=== PATIENT | female | born 1955 | race Caucasian/White ===

== ENCOUNTER 2020-11-16 12:02 | Inpatient (IN) | payer OTHER ==
--- NOTE | 2020-11-16 13:27 | ER Document Report ---
ED Medical Screen (RME) - General Chief Complaint: Post Surgical Pain Stated Complaint: POST SURGICAL PAIN Time Seen by Provider: 11/16/20 13:16 Primary Care Provider: JUAN JOSE FIELDS PA-C [Primary Care Provider] - Follow up as needed TRAVEL OUTSIDE OF THE [place] IN LAST 30 DAYS: No - HPI Notes: Patient is a 65-year-old female who presents with a postop infection. Patient had right hip replacement done on 10/08/[address] Murdock. Patient states she noticed purulent drainage, redness, swelling and tenderness to the surgical incision on her right hip 5 days ago. She saw her primary care provider today concerning this and she was advised to call Dr. Murdock. Dr. Murdock advised patient to come to the emergency department for blood work and states he would come and evaluate the patient this afternoon once he was out of surgery. Patient reports fever. - Related Data Allergies/Adverse Reactions: acetaminophen [From Vicodin] Adverse Reaction (Verified 10/06/20 08:37) hydrocodone [From Vicodin] Adverse Reaction (Verified 10/06/20 08:37) oxycodone [From Percocet] Adverse Reaction (Verified 10/06/20 08:37) Past Medical History - Past Medical History Cardiac Medical History: Reports: Hx Hypertension Endocrine Medical History: Reports: Hx Diabetes Mellitus Type 2, Hx Hypothyroidism Psychiatric Medical History: Denies: Hx Depression Past Surgical History: Reports: Hx Orthopedic Surgery - right knee, unsure what was done, Hx Tubal Ligation Physical Exam - Vital signs Vitals: Temp Pulse Resp BP Pulse Ox 98.8 F 104 H 16 144/97 H 98 11/16/20 12:40 11/16/20 12:40 11/16/20 12:40 11/16/20 12:40 11/16/20 12:40 - Extremities Hip: Other - erythematous surgical incision with purulent drainage on the right hip Course - Re-evaluation Re-evalutation: I have greeted and performed a rapid initial assessment of this patient. A comprehensive ED assessment and evaluation of the patient, analysis of test results and completion of medical decision making process will be conducted by an additional ED providers. - Vital Signs Vital signs: Temp Pulse Resp BP Pulse Ox 98.8 F 104 H 16 144/97 H 98 11/16/20 12:40 11/16/20 12:40 11/16/20 12:40 11/16/20 12:40 11/16/20 12:40 Doctor's Discharge - Discharge Referrals: JUAN JOSE FIELDS PA-C [Primary Care Provider] - Follow up as needed
[2020-11-16 14:12] LABS: ABSOLUTE LYMPHOCYTES (AUTO) 2.2 10^3/uL (0.5-4.7); ABSOLUTE MONOCYTES (AUTO) 0.4 10^3/uL (0.1-1.4); ABSOLUTE NEUT (AUTO) 3.3 10^3/uL (1.7-8.2); BASOPHILS % (AUTO) 0.6 % (0-2); EOSINOPHILS % (AUTO) 0.2 % (0-6); HEMATOCRIT 36.7 % (36.0-47.0); HEMOGLOBIN 12.5 g/dL (12.0-15.5); LYMPHOCYTES % (AUTO) 37.4 % (13-45); MEAN CORPUSCULAR HGB CONC 34.1 g/dL (32.0-36.0); MEAN CORPUSCULAR VOLUME 85 fl (80-97); MONOCYTES % (AUTO) 6.8 % (3-13); PLATELET COUNT 255 10^3/uL (150-450); RED BLOOD COUNT 4.32 10^6/uL (3.72-5.28); RED CELL DISTRIBUTION WIDTH 14.7 % (11.5-14.0); TOTAL CELLS COUNTED % (AUTO) 100 %
[2020-11-16 14:36] LABS: ALBUMIN 3.9 g/dL (3.5-5.0); ALKALINE PHOSPHATASE 102 U/L (38-126); ANION GAP 6 (5-19); ASPARTATE AMINO TRANSFERASE 58 U/L (14-36); BILIRUBIN,DIRECT 0.3 mg/dL (0.0-0.4); BILIRUBIN,TOTAL 0.3 mg/dL (0.2-1.3); BLOOD UREA NITROGEN 21 mg/dL (7-20); C-REACTIVE PROTEIN 17.6 mg/L (<10.0); CARBON DIOXIDE 33 mmol/L (22-30); CHLORIDE 100 mmol/L (98-107); GLUCOSE 206 mg/dL (75-110); POTASSIUM 4.3 mmol/L (3.6-5.0); TOTAL PROTEIN 6.6 g/dL (6.3-8.2)
[2020-11-16 14:49] LABS: ERYTHROCYTE SEDIMENTATION RATE 20 mm/hr (0-30)
--- NOTE | 2020-11-16 15:24 | RADIOLOGY REPORT (SQ) ---
EXAM DESCRIPTION: HIP RIGHT AP/LATERAL IMAGES COMPLETED DATE/TIME: 11/16/2020 2:36 pm REASON FOR STUDY: right hip replacement with postop infection COMPARISON: None. NUMBER OF VIEWS: Three views. TECHNIQUE: An AP view of the pelvis and AP and lateral frogleg views of the right hip were obtained. LIMITATIONS: None. FINDINGS: MINERALIZATION: Normal. RIGHT HIP: The KERWIN hardware is intact. There is no periprosthetic fracture or dislocation. LEFT HIP: Osteoarthrosis of the femoroacetabular joint. PUBIS AND ISCHIUM: The ilioischial and iliopectineal lines are intact. There is no diastasis of the pubic symphysis. PELVIS: No fracture. SACRUM: Intact. LOWER LUMBAR SPINE: Degenerative spondylosis. SOFT TISSUES: No acute gross abnormality. OTHER: No other findings. IMPRESSION: Intact right-sided KERWIN hardware. TECHNICAL DOCUMENTATION: JOB ID: [id number] 2010 [employer]- All Rights Reserved Reading location - IP/workstation name: [email or web address]
[2020-11-16] MEDS ORDERED: METFORMIN HCL 500 MG TABLET PO ONE (16:39)
[2020-11-16] MEDS ORDERED: GLIPIZIDE 10 MG TABLET PO ONE (16:40)
--- NOTE | 2020-11-16 16:57 | ER Document Report ---
ED General - General Chief Complaint: Post Surgical Pain Stated Complaint: POST SURGICAL PAIN Time Seen by Provider: 11/16/20 13:16 Primary Care Provider: JUAN JOSE FIELDS PA-C [Primary Care Provider] - Follow up as needed Mode of Arrival: Ambulatory Information source: Patient TRAVEL OUTSIDE OF THE [place] IN LAST 30 DAYS: No - HPI Notes: Patient presents with right hip pain. She states it has been hurting now for several weeks. She states that she had a recent right hip replacement. And the pain is located near the incision site. She is also noted some drainage from the incision site. She states she does currently use a walker and occasionally she will get some sharp pain that is severe and that radiates down the right leg. It is usually with ambulation at her pain is better with rest. She denies any significant fevers but she has had some recent cough cold and congestion. She has had no known Covid virus exposures. - Related Data Allergies/Adverse Reactions: acetaminophen [From Vicodin] Adverse Reaction (Verified 11/16/20 15:34) hydrocodone [From Vicodin] Adverse Reaction (Verified 11/16/20 15:34) oxycodone [From Percocet] Adverse Reaction (Verified 11/16/20 15:34) Home Medications: eliquis. metformin. glipizide. levoxyl. lisinopril Past Medical History - General Information source: Patient - Social History Smoking Status: Former Smoker Chew tobacco use (# tins/day): No Frequency of alcohol use: None Drug Abuse: None Family History: Reviewed & Not Pertinent Patient has homicidal ideation: No - Past Medical History Cardiac Medical History: Reports: Hx Hypertension Endocrine Medical History: Reports: Hx Diabetes Mellitus Type 2, Hx Hypothyroidism Psychiatric Medical History: Denies: Hx Depression Past Surgical History: Reports: Hx Orthopedic Surgery - right knee, unsure what was done, Hx Tubal Ligation Review of Systems - Review of Systems Constitutional: Chills, Fever, Malaise Cardiovascular: denies: Chest pain, Palpitations Respiratory: Cough. denies: Short of breath -: Yes All other systems reviewed and negative Physical Exam - Vital signs Vitals: Temp Pulse Resp BP Pulse Ox 98.8 F 104 H 16 144/97 H 98 11/16/20 12:40 11/16/20 12:40 11/16/20 12:40 11/16/20 12:40 11/16/20 12:40 Interpretation: Tachycardic - General General appearance: Appears well, Alert - HEENT Head: Normocephalic, Atraumatic Eyes: Normal Pupils: PERRL - Respiratory Respiratory status: No respiratory distress Chest status: Nontender Breath sounds: Normal Chest palpation: Normal - Cardiovascular Rhythm: Tachycardia Heart sounds: Normal auscultation Murmur: No - Abdominal Inspection: Normal Distension: No distension Bowel sounds: Normal Tenderness: Nontender Organomegaly: No organomegaly - Back Back: Normal, Nontender - Extremities General upper extremity: Normal inspection, Nontender, Normal color, Normal ROM, Normal temperature General lower extremity: Normal temperature, Other - Right hip has a post surgical wound. This wound is dehisced. There is some clear drainage. No significant surrounding erythema or induration. It is tender mildly to palpation.. No: Angela's sign - Neurological Neuro grossly intact: Yes Cognition: Normal Orientation: AAOx4 [place] Coma Scale Eye Opening: Spontaneous [place] Coma Scale Verbal: Oriented [place] Coma Scale Motor: Obeys Commands Yuan Coma Scale Total: 15 Speech: Normal Motor strength normal: LUE, RUE, LLE, RLE Sensory: Normal - Psychological Associated symptoms: Normal affect, Normal mood - Skin Skin Temperature: Warm Skin Moisture: Dry Skin Color: Erythema Course - Re-evaluation Re-evalutation: 11/16/20 16:56 Patient is having postsurgical pain around the right hip incision. The incision has dehisced and has some drainage. She was seen in the emergency department by her orthopedic surgeon who is going to admit her and take her back to the operating room. - Vital Signs Vital signs: Temp Pulse Resp BP Pulse Ox 98.8 F 104 H 16 144/97 H 98 11/16/20 12:40 11/16/20 12:40 11/16/20 12:40 11/16/20 12:40 11/16/20 12:40 - Laboratory Results Result Diagrams: 11/16/20 13:50 11/16/20 13:50 Laboratory Results Interpreted: 11/16/20 11/16/20 13:50 13:50 RDW 14.7 H Carbon Dioxide 33 H BUN 21 H Glucose 206 H AST 58 H ALT 75 H C-Reactive Protein 17.6 H Critical Laboratory Results Reviewed: No Critical Results - Radiology Results Critical Radiology Results Reviewed: No Critical Results Discharge - Discharge Clinical Impression: Wound infection Condition: Fair Disposition: ADMITTED INPATIENT Admitting Provider: Dr. Murdock Unit Admitted: Surgical Floor Referrals: JUAN JOSE FIELDS PA-C [Primary Care Provider] - Follow up as needed
[2020-11-16] MEDS ORDERED: DOCUSATE SODIUM 100 MG CAPSULE PO PRN (17:34)
[2020-11-16] MEDS ORDERED: DIPHENHYDRAMINE HCL 25 MG CAPSULE PO PRN (17:34)
[2020-11-16] MEDS ORDERED: ZOLPIDEM TARTRATE 5 MG TABLET PO PRN (17:34)
[2020-11-16] MEDS ORDERED: DEXAMETHASONE SOD PHOS INJ 10 MG/1 ML VIAL IV ONE (17:34)
[2020-11-16] MEDS ORDERED: MORPHINE SULFATE 10 MG/ML INJ IV PRN (17:34)
[2020-11-16] MEDS ORDERED: PANTOPRAZOLE SODIUM 20 MG TABLET.DR PO ONE ×2 (17:34→23:30)
[2020-11-16] MEDS ORDERED: ONDANSETRON 4 MG TAB.RAPDIS PO PRN (17:34)
[2020-11-16] MEDS ORDERED: OXYCODONE HCL IR 5 MG TABLET PO PRN ×4 (17:34)
[2020-11-16] MEDS ORDERED: TRANEXAMIC ACID INJ/PF 1,000 MG/10 ML SDV IV ONE (17:34)
[2020-11-16] MEDS ORDERED: NORMAL SALINE 1000 ML 1,000 ML IV ONE (17:34)
[2020-11-16] MEDS ORDERED: GLUCAGON,HUMAN RECOMB 1 MG INJ SUBCUT PRN (17:37)
[2020-11-16] MEDS ORDERED: DEXTROSE 50%-WATER 25 GM/50 ML DISP.SYRIN IV PRN ×2 (17:37)
[2020-11-16] MEDS ORDERED: DEXTROSE 40% GEL 15 GM TUBE PO PRN ×2 (17:37)
--- NOTE | 2020-11-16 18:55 | PDOC H&P ---
History of Present Illness Admission Date/PCP: 11/16/20 17:07 JUAN JOSE FIELDS PA-C Patient complains of: Right hip pain History of Present Illness: BRIGETTE ZEPEDA is a 65 year old female who received a right total hip arthroplasty for a right femoral neck fracture on 10/08/2020. I saw her in my office for routine postoperative visit and at that time the wound appeared to be doing well and appeared healthy without signs of infection. She explains that she had continued to do well up until approximately 5 days ago when she noticed some drainage. She does report that additionally she has been sick about 2 weeks ago and was not paying much attention to the wound and is unsure how the drainage developed or exactly how long it has been going on. She has been ambulating well and overall reports a good outcome aside from the development of erythema and pain about the wound as well as associated drainage. After a few days of drainage she presented to her family practice doctors office today where she was instructed to go to the emergency department. She describes the pain as burning, localized to the right hip, 5 out of 10, worse with motion, improved with rest, improved with pain medication. The patient also reports that she has not been as compliant as she possibly could over the holidays with maintaining a tight blood glucose. She is diabetes and has not been following a good diabetic diet. She denies any associated fevers or malaise. Past Medical History Cardiac Medical History: Reports: Hypertension Endocrine Medical History: Reports: Diabetes Mellitus Type 2, Hypothyroidism Psychiatric Medical History: Denies: Depression Past Surgical History Past Surgical History: Reports: Orthopedic Surgery - right knee, unsure what was done, Tubal Ligation Social History Smoking Status: Former Smoker Electronic Cigarette use?: No Frequency of Alcohol Use: None Hx Recreational Drug Use: No Hx Prescription Drug Abuse: No Family History Family History: Reviewed & Not Pertinent Parental Family History Reviewed: Yes Children Family History Reviewed: NA Sibling(s) Family History Reviewed.: NA Medication/Allergy Home Medications: Glipizide [Glipizide Xl] 10 mg PO DAILY 10/06/20 Hydrochlorothiazide 12.5 mg PO DAILY 10/06/20 Levothyroxine Sodium 125 mcg PO DAILY 10/06/20 Lisinopril/Hydrochlorothiazide [Lisinopril-Hctz 20-12.5 mg Tab] 1 each PO DAILY 10/06/20 Metformin HCl 1,000 mg PO BID 10/06/20 Methocarbamol [Robaxin 500 mg Tablet] 1,000 mg PO QHS 10/06/20 Methocarbamol [Robaxin 500 mg Tablet] 500 mg PO QAM 10/06/20 [place]-3/Dha/Epa/Fish Oil [Fish Oil 1,000 mg Softgel] 3 each PO QAM 10/06/20 Acetaminophen [Tylenol 325 mg Tablet] 975 mg PO Q6HP PRN #90 tablet 10/09/20 Aspirin [Aspirin 325 mg Tablet] 325 mg PO DAILY 42 Days tablet 10/09/20 Hydromorphone HCl [Dilaudid 2 mg Tablet] 1 mg PO Q4HP PRN 15 Days #30 tablet 10/09/20 Naproxen [Naprosyn 250 mg Tablet] 250 mg PO BIDP PRN #60 tablet 10/09/20 Apixaban [Eliquis] 5 mg PO ASDIR 30 Days #1 tab.ds.pk 10/13/20 Glipizide [Glipizide Xl] 10 mg PO DAILY #30 tab.er.24 10/13/20 Levothyroxine Sodium 125 mcg PO DAILY #30 tablet 10/13/20 Lisinopril/Hydrochlorothiazide [Lisinopril-Hctz 20-12.5 mg Tab] 1 each PO DAILY #30 tablet 10/13/20 Allergies/Adverse Reactions: acetaminophen [From Vicodin] Adverse Reaction (Verified 11/16/20 15:34) hydrocodone [From Vicodin] Adverse Reaction (Verified 11/16/20 15:34) oxycodone [From Percocet] Adverse Reaction (Verified 11/16/20 15:34) Review of Systems Review of Systems: Constitutional: ABSENT: anorexia, chills, night sweats Cardiovascular: ABSENT: chest pain Respiratory: ABSENT: dyspnea Gastrointestinal: ABSENT: vomiting Genitourinary: ABSENT: dysuria Integumentary: ABSENT: rash Neurological: ABSENT: confusion, memory loss, numbness Psychiatric: ABSENT: hallucinations Hematologic/Lymphatic: ABSENT: easy bleeding Physical Exam Vital Signs: Temp Pulse Resp BP Pulse Ox 98.8 F 104 H 16 144/97 H 98 11/16/20 12:40 11/16/20 12:40 11/16/20 12:40 11/16/20 12:40 11/16/20 12:40 Intake & Output 11/15/20 11/16/20 11/17/20 06:59 06:59 06:59 Weight 107.2 kg Physical Exam: General appearance: PRESENT: no acute distress, cooperative, well-nourished Head exam: PRESENT: atraumatic, normocephalic Eye exam: PRESENT: EOMI Ear exam: PRESENT: normal external ear exam Mouth exam: PRESENT: neck supple Neck exam: ABSENT: tracheal deviation Respiratory exam: PRESENT: symmetrical, unlabored. ABSENT: accessory muscle use, wheezes Pulses: PRESENT: normal radial pulses, normal dorsalis pedis pulse Vascular exam: PRESENT: normal capillary refill GI/Abdominal exam: ABSENT: distended, firm Extremities exam: PRESENT: full ROM of bilateral shoulders, elbows wrists, knees, hips and ankles without pain Musculoskeletal exam: PRESENT: full ROM, normal inspection of all 4 extremities aside from that noted below. Neurological exam: PRESENT: alert, awake, oriented to person, oriented to place, oriented to time Psychiatric exam: PRESENT: appropriate affect. ABSENT: agitated Focused psych exam: ABSENT: catatonic Skin exam: PRESENT: intact. ABSENT: dry All as above aside from that noted in the HPI and the following: Right lower extremity -Pulses 2+ distally -Compartments soft -Sensation grossly intact to L3-4-5 S1 -Motor grossly intact to EHL TA gastroc and quad -The wound has some opening in the middle portion of the length of the wound that appears to go deep potentially to fascia. There is no other associated area distal to this there is also open but not as large. There is surrounding erythema. There is no palpable fluctuance however there is some purulent appearing drainage in her dressing. The surrounding skin appears excoriated from dressing changes. Results Laboratory Results: 11/16/20 13:50 11/16/20 13:50 11/16/20 11/16/20 13:50 13:50 WBC 6.0 RBC 4.32 Hgb 12.5 Hct 36.7 MCV 85 MCH 29.0 MCHC 34.1 RDW 14.7 H Plt Count 255 Seg Neutrophils % 55.0 Sodium 139.2 Potassium 4.3 Chloride 100 Carbon Dioxide 33 H Anion Gap 6 BUN 21 H Creatinine 0.70 Est GFR ( Amer) > 60 Glucose 206 H Calcium 9.0 Total Bilirubin 0.3 AST 58 H Alkaline Phosphatase 102 C-Reactive Protein 17.6 H Total Protein 6.6 Albumin 3.9 Impressions: Hip/Pelvis X-Ray 11/16/20 13:22 IMPRESSION: Intact right-sided KERWIN hardware. Assessment & Plan - Diagnosis (1) Wound infection Is this a current diagnosis for this admission?: Yes Plan: -The patient has a wound infection at this time which may be deep. The appearance is concerning, will require debridement. I have her on the schedule for tomorrow N.p.o. at midnight tonight Hold all chemical DVT prophylaxis at midnight tonight Hold antibiotics at this time Will involve case management to assist in potential PICC line placement and home IV antibiotic delivery Additionally, medical management is appreciated while in house by the hospitalist team Infectious disease has been consulted as well. Appreciate recommendations for definitive antibiotics following surgery tomorrow. She will be placed on Ancef provisionally - Time Anticipated Discharge Disposition: Home with Home Health Anticipated Discharge Timeframe: within 72 hours
[2020-11-16] MEDS: ACETAMINOPHEN 325 MG TABLET PO SCH ×2 (19:00→23:36)
[2020-11-16] MEDS ORDERED: KETOROLAC TROMETHAMINE INJ/PF 30 MG/1 ML SDV IV SCH (22:00)
[2020-11-16] MEDS: GABAPENTIN 100 MG CAPSULE PO SCH (23:37)
[2020-11-17] MEDS: ACETAMINOPHEN 325 MG TABLET PO SCH ×4 (06:25→23:57)
[2020-11-17] MEDS ORDERED: METFORMIN HCL 500 MG TABLET PO SCH (08:00)
[2020-11-17] MEDS ORDERED: LEVOTHYROXINE SODIUM 125 MCG PO SCH (10:00)
[2020-11-17] MEDS ORDERED: (PENDING PHARMACY ID) (Lisinopril/Hydrochlorothiazide [Lisinopril-Hctz 20-12.5 Mg Tab] 1 E PO SCH (10:00)
[2020-11-17] MEDS ORDERED: GLIPIZIDE 10 MG PO SCH (10:00)
[2020-11-17] MEDS ORDERED: GLIPIZIDE XL 5 MG TAB.ER.24 PO SCH (10:00)
[2020-11-17] MEDS ORDERED: (PENDING PHARMACY ID) (Metformin Hcl [Metformin Hcl] 1,000 MG Tablet) PO SCH (10:00)
[2020-11-17] MEDS ORDERED: ASPIRIN 325 MG TABLET PO SCH (10:00)
[2020-11-17] MEDS ORDERED: CELECOXIB 200 MG CAPSULE PO SCH (10:00)
[2020-11-17] MEDS ORDERED: EPINEPHRINE INJ/PF 1 MG/1 ML AMPULE ONE (10:36)
[2020-11-17] MEDS ORDERED: PHENYLEPHRINE HCL INJ/PF 10 MG/1 ML SDV ONE (10:36)
[2020-11-17] MEDS: LISINOPRIL 10 MG TABLET PO SCH (11:11)
[2020-11-17] MEDS: HYDROCHLOROTHIAZIDE 12.5 MG TABLET PO SCH (11:12)
[2020-11-17] MEDS: GABAPENTIN 100 MG CAPSULE PO SCH ×2 (11:12→21:14)
[2020-11-17] MEDS: INSULIN LISPRO 100 UNIT/ML 3 ML VIAL SUBCUT SCH ×3 (11:13→21:18)
[2020-11-17] MEDS: POLYETHYLENE GLYCOL 3350 POWDER 17 GM/1 PACKET PO SCH (11:13)
--- NOTE | 2020-11-17 14:51 | PDOC CONSULTATION ---
Consultation Consult Date: 11/17/20 Attending physician:: DONIS MURDOCK JR Provider Consulted: GRACIE WEAVER Consult reason:: management of chronic medical condition, cellulitis post hip arthroplasty History of Present Illness Admission Date/PCP: 11/16/20 17:07 JUAN JOSE FIELDS PA-C Patient complains of: right hip pain History of Present Illness: BRIGETTE ZEPEDA is a 65 year old female, past medical history of type 2 diabetes, hypertension, hypothyroidism status post total hip arthroplasty right secondary to a right femoral neck fracture on October 08, 2020 who was admitted at [facility] due to right hip pain. Patient underwent total right hip arthroplasty last October 08, 2020. During this admission she was also found to have a small DVT. She had an uneventful course otherwise and was sent home. 5 days prior to admission she noted some drainage in the operative site. She also stated that she has been having some on and off fever cough and nasal congestion the past 2 weeks. She has been ambulating well otherwise. After few days of drainage she presented to her family practice doctor's office today where she was instructed to go to the emergency department. She describes the pain as burning, localized to the right hip, 5/10 worse with motion and improved with rest improved with pain medication. Also admits that she has missed several doses of her diabetic and thyroid medications. In the ED her vital signs were stable, afebrile rapid Covid test was done which was positive. Right hip x-ray showed intact right-sided total hip arthroplasty hardware. Blood culture was sent, wound drainage culture sent. Infectious disease was consulted by Dr. Murdock regarding possible infection. Medicine was consulted to manage her medical condition. Past Medical History Cardiac Medical History: Reports: DVT, Hypertension Pulmonary Medical History: Reports: None Endocrine Medical History: Reports: Diabetes Mellitus Type 2, Hypothyroidism Renal/ Medical History: Reports: None GI Medical History: Reports: None Musculoskeltal Medical History: Reports: None Skin Medical History: Reports: None Psychiatric Medical History: Denies: Depression Traumatic Medical History: Reports: None Infectious Medical History: Reports: None Past Surgical History Past Surgical History: Reports: Orthopedic Surgery - right knee, unsure what was done, Tubal Ligation Social History Information Source: Patient Smoking Status: Former Smoker Electronic Cigarette use?: No Frequency of Alcohol Use: None Hx Recreational Drug Use: No Hx Prescription Drug Abuse: No Family History Family History: Reviewed & Not Pertinent Parental Family History Reviewed: Yes Children Family History Reviewed: Yes Sibling(s) Family History Reviewed.: Yes Medication/Allergy Home Medications: Glipizide [Glipizide Xl] 10 mg PO DAILY 10/06/20 Lisinopril/Hydrochlorothiazide [Lisinopril-Hctz 20-12.5 mg Tab] 1 each PO DAILY 10/06/20 Metformin HCl 1,000 mg PO BID 10/06/20 [place]-3/Dha/Epa/Fish Oil [Fish Oil 1,000 mg Softgel] 3 each PO QAM 10/06/20 Naproxen [Naprosyn 250 mg Tablet] 250 mg PO BIDP PRN #60 tablet 10/09/20 Levothyroxine Sodium 125 mcg PO DAILY #30 tablet 10/13/20 Apixaban [Eliquis 5 mg Tablet] 5 mg PO BID 11/16/20 Allergies/Adverse Reactions: acetaminophen [From Vicodin] Adverse Reaction (Verified 11/16/20 15:34) hydrocodone [From Vicodin] Adverse Reaction (Verified 11/16/20 15:34) oxycodone [From Percocet] Adverse Reaction (Verified 11/16/20 15:34) Review of Systems Constitutional: PRESENT: fever(s). ABSENT: night sweats, weakness Eyes: ABSENT: visual disturbances Ears: ABSENT: hearing changes Nose, Mouth, and Throat: ABSENT: mouth pain, sore throat Cardiovascular: ABSENT: chest pain, dyspnea on exertion, edema Respiratory: PRESENT: cough, sputum Gastrointestinal: ABSENT: diarrhea, dysphagia, heartburn Neurological: ABSENT: abnormal movements Physical Exam Vital Signs: Temp Pulse Resp BP Pulse Ox 97.6 F 108 H 16 138/90 H 98 11/17/20 08:05 11/17/20 08:05 11/17/20 08:05 11/17/20 08:05 11/17/20 08:05 Intake & Output 11/16/20 11/17/20 11/18/20 06:59 06:59 06:59 Intake Total 520 Balance 520 Weight 107.2 kg Results Laboratory Results: 11/16/20 13:50 11/16/20 13:50 11/16/20 11/16/20 13:50 13:50 WBC 6.0 RBC 4.32 Hgb 12.5 Hct 36.7 MCV 85 MCH 29.0 MCHC 34.1 RDW 14.7 H Plt Count 255 Seg Neutrophils % 55.0 Sodium 139.2 Potassium 4.3 Chloride 100 Carbon Dioxide 33 H Anion Gap 6 BUN 21 H Creatinine 0.70 Est GFR ( Amer) > 60 Glucose 206 H Calcium 9.0 Total Bilirubin 0.3 AST 58 H Alkaline Phosphatase 102 C-Reactive Protein 17.6 H Total Protein 6.6 Albumin 3.9 11/16/20 15:22 Hip - Right Gram Stain - Final Impressions: Hip/Pelvis X-Ray 11/16/20 13:22 IMPRESSION: Intact right-sided KERWIN hardware. Assessment and Plan - Diagnosis (1) Wound infection Is this a current diagnosis for this admission?: Yes Plan: -- s/p righ KERWIN 10/08/20 came in due to wound drainage and pain - WBC 6.0 - Afebrile - blood culture pending - wound culture gram stain gram +giovanna cocci - ancef per Dr. murdock - for wound debridement today - ID consulted regarding possible infection - pain management per Dr. Murdock (2) DM2 (diabetes mellitus, type 2) Qualifiers: Diabetes mellitus fdc insulin use: without petroleum terminal plant operator use Is this a current diagnosis for this admission?: Yes Plan: - on 2g metformin and Glipizide at home - hold oral meds - switch to SSI, accucheck and hypoglycemia protocol - check A1C (3) DVT (deep venous thrombosis) Qualifiers: DVT location: lower extremity Chronicity: acute Laterality: right Is this a current diagnosis for this admission?: Yes Plan: - had a DVT during last admssion - provoked by immobility from fracture and surgery - eliquis 5 mg BID on hold due to planned debridement - may resume tomorrow (4) Fracture of femoral neck, right, closed Qualifiers: Encounter type: initial encounter Qualified Code(s): S72.001A - Fracture of unspecified part of neck of right femur, initial encounter for closed fracture Is this a current diagnosis for this admission?: Yes Plan: - s/p KERWIN right 10/08/20 (5) Hypertension Qualifiers: Hypertension type: essential hypertension Qualified Code(s): I10 - Essential (primary) hypertension Is this a current diagnosis for this admission?: Yes Plan: - continue lisinopril (6) Hypothyroidism Qualifiers: Hypothyroidism type: unspecified Qualified Code(s): E03.9 - Hypothyroidism, unspecified Is this a current diagnosis for this admission?: Yes Plan: - Synthroid 125 resumed (7) Obesity, Class II, BMI 35-39.9 Is this a current diagnosis for this admission?: Yes Plan: -BMI 38.1 - advised diet with weight loss and lifestyle modification (8) COVID-19 virus detected Is this a current diagnosis for this admission?: Yes Plan: - had mild symptoms, cough, nasal congestion adn fever - no SOB, not requiring 02 - no indication for remdesivir and steroids for now - CXR ordered - started ivermectin - Vitamin C,D zinc melatonin ordered - Time Time Spent with patient: 25-34 minutes Medications reviewed and adjusted accordingly: Yes Anticipated Discharge Disposition: Nursing Home Facility Anticipated Discharge Timeframe: tbd
--- NOTE | 2020-11-17 16:01 | Progress Note ---
Provider Note Provider Note: [facility] ID TeleConsultation. Patient not examined. Chart reviewed. This is a 65-year-old female with a history of hypertension and diabetes who received a right KERWIN for a right femoral neck fracture on 10/08. She was doing well until 5 days prior to admission on 11/16 until she noticed some drainage from her wound. She had a normal WBC on admission with a CRP of 17.6 and an x- ray revealing intact right-sided KERWIN hardware. Went today 11/17 to the OR for debridement. It is unclear what was done, potentially revision. Drainage from the right hip done at the bedside with preliminary growth of GPC's in clusters 11/16. Her blood cultures are preliminary no growth to date from 11/16. Creatinine is normal at 0.7. Of note her Covid test was also positive. Assessment/Recommendations: Vancomycin dosed by pharmacy is appropriate pending final cultures. If at all possible cultures from the operating room should be done. Most likely organism is Staph aureus. Will need to ascertain depth and involvement of the prosthesis by orthopedics as she may need to be treated for a prosthetic joint infection which would require 6 weeks of IV antibiotics followed by 6 weeks of p.o. and potentially longer p.o. suppression. Final culture results will be followed.
--- NOTE | 2020-11-17 16:09 | RADIOLOGY REPORT (SQ) ---
EXAM DESCRIPTION: CHEST SINGLE VIEW IMAGES COMPLETED DATE/TIME: 11/17/2020 3:26 pm REASON FOR STUDY: COVID +ve COMPARISON: 10/08/2020 EXAM PARAMETERS: NUMBER OF VIEWS: One view. TECHNIQUE: Single frontal radiographic view of the chest acquired. RADIATION DOSE: NA LIMITATIONS: None. FINDINGS: LUNGS AND PLEURA: No opacities, masses or pneumothorax. No pleural effusion. MEDIASTINUM AND HILAR STRUCTURES: No masses. Contour normal. HEART AND VASCULAR STRUCTURES: Heart normal in size. Normal vasculature. BONES: No acute findings. HARDWARE: None in the chest. OTHER: No other significant finding. IMPRESSION: NO ACUTE RADIOGRAPHIC FINDING IN THE CHEST. TECHNICAL DOCUMENTATION: JOB ID: [id number] 2010 [employer]- All Rights Reserved Reading location - IP/workstation name: [email or web address]
[2020-11-17] MEDS ORDERED: FENTANYL CITRATE INJ/PF 100 MCG/2 ML AMPUL ONE (16:26)
[2020-11-17] MEDS ORDERED: ONDANSETRON HCL INJ/PF 4 MG/2 ML SDV ONE (16:27)
[2020-11-17] MEDS ORDERED: MIDAZOLAM 2 MG/2 ML INJ ONE (16:27)
[2020-11-17] MEDS ORDERED: PROPOFOL INJ 200 MG/20 ML VIAL IV ONE ×2 (16:29→16:51)
[2020-11-17] MEDS ORDERED: KETOROLAC TROMETHAMINE INJ/PF 30 MG/1 ML SDV ONE (16:42)
[2020-11-17] MEDS ORDERED: BUPIVACAINE HCL 0.25 % INJ/PF (2.5 MG/1 ML) 30 ML VIAL ONE (16:42)
[2020-11-17] MEDS ORDERED: VANCOMYCIN HCL INJ 1000 MG VIAL ONE ×2 (16:42→17:16)
[2020-11-17 16:46] LABS: INTERNATIONAL RATION (INR) 0.97; PROTHROMBIN TIME 13.1 SEC (11.4-15.4)
[2020-11-17] MEDS ORDERED: KETAMINE HCL INJ 500 MG/10 ML VIAL ONE (17:06)
[2020-11-17] MEDS ORDERED: TRANEXAMIC ACID INJ/PF 1,000 MG/10 ML SDV ONE (17:06)
--- NOTE | 2020-11-17 17:13 | PDOC PROGRESS REPORT ---
Subjective Date:: 11/17/20 Subjective:: No acute events overnight. Patient's pain is currently well controlled. She is without overnight fevers. Reason For Visit: RIGHT HIP POST SURGICAL WOUND INFECTION Physical Exam Vital Signs: Temp Pulse Resp BP Pulse Ox 97.6 F 108 H 16 138/90 H 98 11/17/20 08:05 11/17/20 08:05 11/17/20 08:05 11/17/20 08:05 11/17/20 08:05 Intake & Output 11/16/20 11/17/20 11/18/20 06:59 06:59 06:59 Intake Total 520 Balance 520 Weight 107.2 kg Physical Exam: No acute distress, alert and orient x3 All as above aside from that noted in the HPI and the following: Right lower extremity -Pulses 2+ distally -Compartments soft -Sensation grossly intact to L3-4-5 S1 -Motor grossly intact to EHL TA gastroc and quad -The wound has some opening in the middle portion of the length of the wound that appears to go deep potentially to fascia. There is no other associated area distal to this there is also open but not as large. There is surrounding erythema. There is no palpable fluctuance however there is some purulent appearing drainage in her dressing. The surrounding skin appears excoriated from dressing changes. Results Laboratory Results: 11/16/20 13:50 11/16/20 13:50 11/16/20 15:22 Hip - Right Gram Stain - Final Impressions: Hip/Pelvis X-Ray 11/16/20 13:22 IMPRESSION: Intact right-sided KERWIN hardware. Chest X-Ray 11/17/20 00:00 IMPRESSION: NO ACUTE RADIOGRAPHIC FINDING IN THE CHEST. Assessment & Plan - Diagnosis (1) Wound infection Is this a current diagnosis for this admission?: Yes Plan: Patient is to undergo washout today. Potential exchange of hardware. Hold antibiotics until intraoperative delivery We will obtain cultures and follow I encourage the infectious disease team to primarily utilize intraoperative cultures rather than superficial wound cultures which were obtained yesterday in the emergency department. Keep n.p.o. We will resume DVT prophylaxis following surgery Multimodal pain control (2) DM2 (diabetes mellitus, type 2) Qualifiers: Diabetes mellitus usp insulin use: without manager terminal use Is this a current diagnosis for this admission?: Yes (3) Obesity, Class II, BMI 35-39.9 Is this a current diagnosis for this admission?: Yes - Time Time Spent with patient: Less than 15 minutes
[2020-11-17] MEDS ORDERED: CEFAZOLIN INJ 1 GM VIAL ONE (17:16)
[2020-11-17] MEDS ORDERED: CEFAZOLIN 2 GM/D5W RTU 2 GM/50 ML RTUPB IV SCH (18:00)
[2020-11-17] MEDS ORDERED: DIPHENHYDRAMINE HCL 50 MG/ML VIAL IV PRN (18:30)
[2020-11-17] MEDS ORDERED: MORPHINE SULFATE 10 MG/ML INJ IV PRN (18:30)
[2020-11-17] MEDS ORDERED: MEPERIDINE HCL/PF INJ 25 MG/1 ML DISP.SYRIN IV PRN (18:30)
[2020-11-17] MEDS ORDERED: FENTANYL CITRATE INJ/PF 100 MCG/2 ML AMPUL IV PRN ×3 (18:30)
[2020-11-17] MEDS ORDERED: PROMETHAZINE HCL INJ 25 MG/1 ML VIAL IV PRN (18:30)
--- NOTE | 2020-11-17 19:40 | Operative Report ---
Operative Report DATE OF SURGERY: 11/17/20 PREOPERATIVE DIAGNOSIS: Right hip postsurgical wound infection POSTOPERATIVE DIAGNOSIS: Right hip postsurgical wound infection, superficial OPERATION: Right hip superficial irrigation and debridement with wound VAC application SURGEON: DONIS TANNER JR ANESTHESIA: Spinal TISSUE REMOVED OR ALTERED: Multiple cultures were sent COMPLICATIONS: None ESTIMATED BLOOD LOSS: 50 cc PROCEDURE: The patient was brought to the operating suite and provided with spinal anesthesia. She was provided with 2g of ancef and 1 g of vancomycin. She was then positioned on the table supine. The right lower extremities and prepped and draped in standard sterile fashion. An appropriate timeout was performed followed by incision over her prior incision. The wound had dehisced proximally 2 cm in the central aspect of the wound and another 1 cm area in the distal aspect of the wound. Proceeded to open the entire wound. After doing this sharply I cauterize any potential bleeders. A curette was placed down to the basement layer which was the tensor fascia. This initially appeared to be intact without any signs of communication deep. I proceeded with a curette and a lion elevator to scrape the entire wound of any nonviable tissue. Cultures were sent including pieces that I obtained with a rongeur. Another culture swab was used. After thorough debridement I proceeded to irrigate the wound with 3 L of dilute Betadine solution. Again I used in a culture swab to explore the wound bed and to try to evaluate for any potential communication or rent that proceeded deep. The entire wound bed appeared to be completely intact without signs of deep penetration. At this point I proceeded with a irrisept bath. While we waited for the irrisept soak I also excised the skin edges removing any dusky appearing and prior infected tissue. I then irrigated no 3 L. This point I reprepped the skin above with a prep stick. Through this prepped the skin I introduced a 18- gauge spinal needle that I placed onto the femoral head. I did this outside of the other wound bed to avoid any potential contamination. I was able to aspirate approximately 2 cc of noninfectious appearing fluid. Given the scant amount of fluid obtained and the appearance of the fluid I had low concern at that point for any potential deep infection. This fluid was then sent for culture as well. I early debrided the wound 1 last time with a curette and a lion elevator followed by final 3 L of fluid. At this point I then dried the wound thoroughly and then applied 1 g of vancomycin powder taking care to distribute the powder to all areas of the wound. I then sutured the deeper adipose layer with a #2 Quill gently approximating it. This was then followed with full-thickness horizontal mattress 3-0 nylon sutures in the skin. Finally a Prevena wound VAC was applied. The patient was then awakened from anesthesia and sent to the PACU in stable condition. The plan at this point will be to place patient on continuous IV antibiotics until cultures are final. She will be made weightbearing as tolerated She will be discharged pending recommendations from infectious disease.
[2020-11-17] MEDS: CEFAZOLIN SODIUM 2 GM in DEXTROSE 5%-WATER 100 ML IV SCH ×2 (20:57→23:59)
[2020-11-17] MEDS: VANCOMYCIN HCL 1,250 MG in DEXTROSE 5%-WATER 250 ML IV SCH (21:12)
[2020-11-17] MEDS: TRAMADOL HCL 50 MG TABLET PO PRN (21:14)
[2020-11-17] MEDS: MELATONIN 5 MG TABLET PO SCH (21:14)
[2020-11-17] MEDS: IVERMECTIN 3 MG TABLET PO SCH (21:15)
[2020-11-17] MEDS: ASCORBIC ACID 500 MG TABLET PO SCH (21:15)
[2020-11-17] MEDS ORDERED: VANCOMYCIN HCL INJ 500 MG VIAL IV SCH (22:00)
[2020-11-17] MEDS: MORPHINE SULFATE 10 MG/ML INJ IV PRN (23:26)
[2020-11-18] MEDS: LEVOTHYROXINE SODIUM 0.1 MG TABLET PO SCH (05:21)
[2020-11-18] MEDS: LEVOTHYROXINE SODIUM 0.025 MG TABLET PO SCH (05:21)
[2020-11-18] MEDS: CEFAZOLIN SODIUM 2 GM in DEXTROSE 5%-WATER 100 ML IV SCH (05:22)
[2020-11-18] MEDS: ACETAMINOPHEN 325 MG TABLET PO SCH ×4 (05:22→23:32)
[2020-11-18] MEDS: TRAMADOL HCL 50 MG TABLET PO PRN ×4 (05:29→23:31)
[2020-11-18] MEDS: MORPHINE SULFATE 10 MG/ML INJ IV PRN ×2 (06:55→15:26)
[2020-11-18] MEDS ORDERED: DEXTROSE 40% GEL 15 GM TUBE PO PRN ×2 (07:26)
[2020-11-18] MEDS: INSULIN LISPRO 100 UNIT/ML 3 ML VIAL SUBCUT SCH ×4 (08:14→22:08)
--- NOTE | 2020-11-18 08:35 | PDOC PROGRESS REPORT ---
Subjective Date:: 11/18/20 Subjective:: Patient doing well this AM. No acute events overnight. No new complaints. Ally n currently well controlled. She is COVID positive with no symptoms. Reason For Visit: RIGHT HIP POST SURGICAL WOUND INFECTION Physical Exam Vital Signs: Temp Pulse Resp BP Pulse Ox 97.5 F 78 16 93/61 L 94 11/18/20 08:03 11/18/20 08:03 11/18/20 08:03 11/18/20 08:03 11/18/20 08:03 Intake & Output 11/17/20 11/18/20 11/19/20 06:59 06:59 06:59 Intake Total 520 2810 Output Total 450 Balance 520 2360 Weight 107.2 kg 107.2 kg Physical Exam: No acute distress, alert and orient x3 Right lower extremity -Pulses 2+ distally -Compartments soft -Sensation grossly intact to L3-4-5 S1 -Motor grossly intact to EHL TA gastroc and quad Wound VAC is well-positioned and holding a good seal. There is no output in the VAC this time. Results Laboratory Results: 11/16/20 13:50 11/16/20 13:50 11/16/20 15:22 Hip - Right Gram Stain - Final 11/16/20 15:22 Hip - Right Wound Culture - Final Staphylococcus Aureus Impressions: Hip/Pelvis X-Ray 11/16/20 13:22 IMPRESSION: Intact right-sided KERWIN hardware. Chest X-Ray 11/17/20 00:00 IMPRESSION: NO ACUTE RADIOGRAPHIC FINDING IN THE CHEST. Assessment & Plan - Diagnosis (1) Wound infection Is this a current diagnosis for this admission?: Yes Plan: Currently awaiting cultures. The superficial wound culture that was obtained in the emergency department has a potential for contamination with skin terzea and so I am relying on the subsequent intraoperative cultures. Procedure was superficial wound I&D. I explored the wound bed at the time of surgery thoroughly and did not feel the need to proceed to the implant. This will guide infectious diseases recommendation for postoperative antibiotics. Patient is currently on vancomycin. I have reached out to infectious disease and I am awaiting a response in regards to discussing the above and determining the best means of treatment for the patient upon discharge The patient is weightbearing as tolerated We will resume anticoagulation today Continue wound VAC until seen in my office Potentially discharge home tomorrow pending ID recommendations and culture results. Follow-up with Dr. Jung Murdock, orthopedic surgeon at [facility] for surgery, in 10 days. Call for an appointment. . [address], [place] [address] (2) DM2 (diabetes mellitus, type 2) Qualifiers: Diabetes mellitus termite treater insulin use: without termite treater use Is this a current diagnosis for this admission?: Yes Plan: The hospitalist is currently following the patient, I appreciate any active involvement in her care while in-house. (3) Obesity, Class II, BMI 35-39.9 Is this a current diagnosis for this admission?: Yes - Time Time Spent with patient: Less than 15 minutes
[2020-11-18] MEDS: POLYETHYLENE GLYCOL 3350 POWDER 17 GM/1 PACKET PO SCH (09:58)
[2020-11-18] MEDS: LISINOPRIL 10 MG TABLET PO SCH (09:59)
[2020-11-18] MEDS: ZINC SULFATE 220 MG CAPSULE PO SCH (09:59)
[2020-11-18] MEDS: VANCOMYCIN HCL 1,250 MG in DEXTROSE 5%-WATER 250 ML IV SCH ×2 (09:59→22:07)
[2020-11-18] MEDS: HYDROCHLOROTHIAZIDE 12.5 MG TABLET PO SCH (09:59)
[2020-11-18] MEDS: CHOLECALCIFEROL (D3) 1,000 UNIT (25 MCG) TABLET PO SCH (09:59)
[2020-11-18] MEDS: GABAPENTIN 100 MG CAPSULE PO SCH ×2 (09:59→22:08)
[2020-11-18] MEDS: ASPIRIN 81 MG TABLET, CHEWABLE PO SCH ×2 (09:59→18:16)
[2020-11-18] MEDS: ASCORBIC ACID 500 MG TABLET PO SCH ×2 (09:59→18:16)
--- NOTE | 2020-11-18 19:32 | PDOC PROGRESS REPORT ---
Subjective Date:: 11/18/20 Subjective:: Patient feels well. Not having much in terms of respiratory symptoms. Denies a ny shortness of breath or chest pain. Reason For Visit: RIGHT HIP POST SURGICAL WOUND INFECTION Physical Exam Vital Signs: Temp Pulse Resp BP Pulse Ox 98.0 F 80 18 121/61 96 11/18/20 15:15 11/18/20 15:15 11/18/20 15:15 11/18/20 15:15 11/18/20 15:15 Intake & Output 11/17/20 11/18/20 11/19/20 06:59 06:59 06:59 Intake Total 520 2810 1110 Output Total 450 650 Balance 520 2360 460 Weight 107.2 kg 107.2 kg General appearance: PRESENT: no acute distress, cooperative Neck exam: ABSENT: JVD Respiratory exam: PRESENT: clear to auscultation judith, unlabored. ABSENT: tachypnea, wheezes Cardiovascular exam: PRESENT: +S1, +S2. ABSENT: tachycardia GI/Abdominal exam: PRESENT: soft. ABSENT: rebound, rigid, tenderness Results Laboratory Results: 11/16/20 13:50 11/16/20 13:50 11/16/20 15:22 Hip - Right Gram Stain - Final 11/16/20 15:22 Hip - Right Wound Culture - Final Staphylococcus Aureus Impressions: Hip/Pelvis X-Ray 11/16/20 13:22 IMPRESSION: Intact right-sided KERWIN hardware. Chest X-Ray 11/17/20 00:00 IMPRESSION: NO ACUTE RADIOGRAPHIC FINDING IN THE CHEST. Assessment and Plan - Diagnosis (1) COVID-19 virus detected Is this a current diagnosis for this admission?: Yes (2) Wound infection Is this a current diagnosis for this admission?: Yes (3) DM2 (diabetes mellitus, type 2) Qualifiers: Diabetes mellitus manager intermediate insulin use: without residential use Is this a current diagnosis for this admission?: Yes (4) DVT (deep venous thrombosis) Qualifiers: DVT location: lower extremity Chronicity: acute Laterality: right Is this a current diagnosis for this admission?: Yes (5) Hypertension Qualifiers: Hypertension type: essential hypertension Qualified Code(s): I10 - Essential (primary) hypertension Is this a current diagnosis for this admission?: Yes (6) Hypothyroidism Qualifiers: Hypothyroidism type: unspecified Qualified Code(s): E03.9 - Hypothyroidism, unspecified Is this a current diagnosis for this admission?: Yes - Plan Summary Summary: In regards to patient's COVID-19 infection, patient has mild disease and does not require any further treatment. She has already received a dose of ivermectin. Would recommend having patient take eerm-zmu-kjhtnql vitamin C, vitamin D and zinc supplements when being discharged. Follow-up ID recommendations for antibiotic treatment of patient infected surgical wound. BG looks good. continue current management. Resume patient's antiglycemic meds on discharge. Continue antihypertensives Continue Synthroid Resume patient's Eliquis upon discharge or whenever deemed ok by primary o rthopedist service I will sign off. Please call [phone] with questions. - Time Time Spent with patient: 15-24 minutes Anticipated Discharge Disposition: Home, Self Care Anticipated Discharge Timeframe: n/a
[2020-11-18] MEDS: MELATONIN 5 MG TABLET PO SCH (22:08)
[2020-11-19] MEDS: LEVOTHYROXINE SODIUM 0.1 MG TABLET PO SCH (06:07)
[2020-11-19] MEDS: LEVOTHYROXINE SODIUM 0.025 MG TABLET PO SCH (06:08)
[2020-11-19] MEDS: TRAMADOL HCL 50 MG TABLET PO PRN (06:09)
[2020-11-19] MEDS: ACETAMINOPHEN 325 MG TABLET PO SCH ×4 (06:09→23:10)
[2020-11-19] MEDS ORDERED: INFLUENZA QUAD (6MOS+) 2020-21 VAC 0.5 ML SYR IM ONE (08:00)
--- NOTE | 2020-11-19 09:17 | Progress Note ---
Provider Note Provider Note: [facility] ID teleconsultation. Patient not examined. Chart reviewed. Follow-up HPI: This is a 65-year-old female with a history of hypertension and diabetes who received a right KERWIN for a right femoral neck fracture on 10/08. She was doing well until 5 days prior to admission on 11/16 until she noticed some drainage fro m her wound. She had a normal WBC on admission with a CRP of 17.6 and an x-ray revealing intact right-sided KERWIN hardware. Went today 11/17 to the OR for debridement. I has spoken with Dr. Murdock he did not feel that there was involvement of the hip joint proper and in fact an aspirate from the hip revealed only scant fluid and is no growth at 1 day. Therefore her hardware was left in place. All operative cultures of superficial tissue with MSSA. of note her Covid test was also positive. Assessment/Recommendations: Surgical site infection after right KERWIN. All cultures with MSSA. Did not appear to involve the joint space intraoperatively. Inflammatory markers not markedly elevated. In this situation it may be best to proceed with 6 weeks of IV antibiotics to be conservative. If she can manage the preferred option would be cefazolin 2 g IV every 8 hours via home health. A more convenient outpatient regimen would be ceftriaxone 2 g IV daily but is broader in spectrum and may lead to a higher C. difficile risk. Would discuss with patient. Rifampin is not likely necessary and will lower her levothyroxine. Weekly CBC, CMP should be followed on above IV antibiotic therapy. Please call with questions. Monica Birch MD
[2020-11-19] MEDS: INSULIN LISPRO 100 UNIT/ML 3 ML VIAL SUBCUT SCH ×4 (09:37→22:33)
[2020-11-19] MEDS: HYDROCHLOROTHIAZIDE 12.5 MG TABLET PO SCH (10:14)
[2020-11-19] MEDS: ZINC SULFATE 220 MG CAPSULE PO SCH (10:14)
[2020-11-19] MEDS: ASPIRIN 81 MG TABLET, CHEWABLE PO SCH ×2 (10:15→17:44)
[2020-11-19] MEDS: POLYETHYLENE GLYCOL 3350 POWDER 17 GM/1 PACKET PO SCH (10:15)
[2020-11-19] MEDS: LISINOPRIL 10 MG TABLET PO SCH (10:15)
[2020-11-19] MEDS: GABAPENTIN 100 MG CAPSULE PO SCH ×2 (10:15→22:33)
[2020-11-19] MEDS: CHOLECALCIFEROL (D3) 1,000 UNIT (25 MCG) TABLET PO SCH (10:15)
[2020-11-19] MEDS: ASCORBIC ACID 500 MG TABLET PO SCH ×2 (10:17→17:44)
[2020-11-19 10:32] LABS: VANCOMYCIN,TROUGH 9.7 ug/mL (5.0-20.0)
[2020-11-19] MEDS: VANCOMYCIN HCL 1,250 MG in DEXTROSE 5%-WATER 250 ML IV SCH ×2 (11:38→17:46)
--- NOTE | 2020-11-19 11:48 | RADIOLOGY REPORT (SQ) ---
EXAM DESCRIPTION: PICC INSERTION IMAGES COMPLETED DATE/TIME: 11/19/2020 11:31 am REASON FOR STUDY: home abx COMPARISON: None. FLUOROSCOPY TIME: 47 seconds 1 images saved to PACS. TECHNIQUE: Fluoroscopic and ultrasound guided PICC placement. LIMITATIONS: None. PROCEDURE: After written consent and assessment were obtained, the patient was brought into the fluo roscopy room and placed supine on the table. Ultrasound evaluation of potential access sites were per formed. After successfully identifying a patent left upper extremity basilic vein, the left upper arm was prepped and draped in a sterile fashion along with the ultrasound probe. The entry site was anes thetized with 1% lidocaine. A 21 gauge 7 cm needle was advanced through the skin and into the left ba silic vein under live ultrasound guidance. An ultrasound image was saved to PACS confirming access s ite. A .018 guide wire was then inserted through the needle and into the venous system. The needle w as then removed and an 11 blade scalpel was used to make a 1cm skin incision. A 5 fr peel-away sheat h was advanced over the wire and into the venous system. A measurement was then made using the existi ng wire and live fluoroscopic guidance. The wire was then removed and trimmed. The PICC was advanced through the peel-away sheath and into the venous system. The peel-away sheath was removed and the cat heter was adhered to the patients arm with a stat lock. The catheter was then aspirated and flushed a nd a sterile bandage was placed over the access site. A fluoroscopic spot image was saved to PACS co nfirming the catheter tip within the SVC. IMPRESSION: SUCCESSFUL PLACEMENT OF A 5 FR DUAL LUMEN 38 CM PICC IN THE LEFT BASILIC VEIN. COMMENT: Patient medication list reviewed: Yes- Quality ID# [id number]:Eligible professional attests to doc umenting in the medical record they obtained, updated, or reviewed the patient's current medications. . Quality ID 145: Final reports for procedures using fluoroscopy that document radiation exposure lena niraj, or exposure time and number of fluorographic images (if radiation exposure indices are not avail able) Quality ID #76: The patient was prepped and draped using maximum sterile barrier technique including cap, mask, sterile gown, sterile gloves, a large sterile sheet, hand hygiene, and 2% Chlorhexidine fo r cutaneous antisepsis. When ultrasound is used, sterile ultrasound techniques are followed requiring sterile gel and sterile probes. TECHNICAL DOCUMENTATION: JOB ID: [id number] 2010 [employer]- All Rights Reserved Reading location - IP/workstation name: [email or web address]
--- NOTE | 2020-11-19 13:23 | PDOC PROGRESS REPORT ---
Subjective Date:: 11/19/20 Subjective:: Patient is doing well. She is laying in bed at time of exam. She reports that she is not having much pain. Reason For Visit: RIGHT HIP POST SURGICAL WOUND INFECTION Physical Exam Vital Signs: Temp Pulse Resp BP Pulse Ox 98.6 F 103 H 16 117/73 92 11/19/20 11:49 11/19/20 11:49 11/19/20 11:49 11/19/20 11:49 11/19/20 11:49 Intake & Output 11/18/20 11/19/20 11/20/20 06:59 06:59 06:59 Intake Total 2810 2110 240 Output Total 450 1550 450 Balance 2360 560 -210 Weight 107.2 kg 107.2 kg General appearance: PRESENT: no acute distress, cooperative Additional comments: Right Lower extremity: N/V intact, calves are soft and non-tender, wound vac is intact and working properly. moves feet without pain or difficulty Results Laboratory Results: 11/16/20 13:50 11/16/20 13:50 11/17/20 18:11 Hip - Superficial Gram Stain - Final 11/17/20 18:11 Hip - Superficial Wound Culture - Final Staphylococcus Aureus Micrococcus Species No Anaerobic Organisms 11/17/20 18:23 Hip - Deep Wound Gram Stain - Final 11/17/20 18:19 Hip - Superficial Gram Stain - Final 11/17/20 18:14 Hip - Superficial Gram Stain - Final 11/17/20 18:14 Hip - Superficial Wound Culture - Final Staphylococcus Aureus No Anaerobic Organisms Impressions: Hip/Pelvis X-Ray 11/16/20 13:22 IMPRESSION: Intact right-sided KERWIN hardware. Chest X-Ray 11/17/20 00:00 IMPRESSION: NO ACUTE RADIOGRAPHIC FINDING IN THE CHEST. PICC Line Insertion 11/19/20 00:00 IMPRESSION: SUCCESSFUL PLACEMENT OF A 5 FR DUAL LUMEN 38 CM PICC IN THE LEFT BASILIC VEIN. Assessment & Plan - Time Time Spent with patient: Less than 15 minutes - Plan Summary Plan Summary: s/p wound vac placement ok to D/C from ortho standpoint f/u in 7-10 days with ortho
[2020-11-19] MEDS: IVERMECTIN 3 MG TABLET PO SCH (18:03)
[2020-11-19] MEDS: MELATONIN 5 MG TABLET PO SCH (22:33)
[2020-11-20] MEDS: VANCOMYCIN HCL 1,250 MG in DEXTROSE 5%-WATER 250 ML IV SCH ×2 (02:02→10:30)
[2020-11-20] MEDS: ACETAMINOPHEN 325 MG TABLET PO SCH ×2 (05:25→12:35)
[2020-11-20] MEDS: LEVOTHYROXINE SODIUM 0.025 MG TABLET PO SCH (05:25)
[2020-11-20] MEDS: LEVOTHYROXINE SODIUM 0.1 MG TABLET PO SCH (05:25)
[2020-11-20] MEDS ORDERED: CEFTRIAXONE 2 GM/D5W RTU 2 GM/50 ML RTUPB IV SCH (08:00)
[2020-11-20] MEDS: INSULIN LISPRO 100 UNIT/ML 3 ML VIAL SUBCUT SCH ×2 (08:32→12:31)
[2020-11-20] MEDS: CHOLECALCIFEROL (D3) 1,000 UNIT (25 MCG) TABLET PO SCH (10:28)
[2020-11-20] MEDS: ASPIRIN 81 MG TABLET, CHEWABLE PO SCH (10:29)
[2020-11-20] MEDS: HYDROCHLOROTHIAZIDE 12.5 MG TABLET PO SCH (10:29)
[2020-11-20] MEDS: ASCORBIC ACID 500 MG TABLET PO SCH (10:29)
[2020-11-20] MEDS: ZINC SULFATE 220 MG CAPSULE PO SCH (10:29)
[2020-11-20] MEDS: GABAPENTIN 100 MG CAPSULE PO SCH (10:29)
[2020-11-20] MEDS: POLYETHYLENE GLYCOL 3350 POWDER 17 GM/1 PACKET PO SCH (10:30)
[2020-11-20] MEDS: LISINOPRIL 10 MG TABLET PO SCH (10:30)
[2020-11-20 14:07] VITALS: BP 117/72
--- NOTE | 2020-11-20 16:21 | PDOC DISCHARGE SUMMARY ---
Impression - Admit/DC Date/PCP Admission Date/Primary Care Provider: 11/16/20 17:07 JUAN JOSE FIELDS PA-C Discharge Date: 11/20/20 - Assessment Summary: In regards to patient's COVID-19 infection, patient has mild disease and does not require any further treatment. She has already received a dose of ivermectin. Would recommend having patient take exxn-dql-[id number] vitamin C, vitamin D and zinc supplements when being discharged. Follow-up ID recommendations for antibiotic treatment of patient infected surgical wound. BG looks good. continue current management. Resume patient's antiglycemic meds on discharge. Continue antihypertensives Continue Synthroid Resume patient's Eliquis upon discharge or whenever deemed ok by primary orthopedist service I will sign off. Please call [phone] with questions. - Additional Information Resuscitation Status: Full Code Discharge Diet: As Tolerated Discharge Activity: Activity As Tolerated, Keep Legs Elevated, No tub bath, Walk Frequently Referrals: [facility] [Outside] JUAN JOSE FIELDS PA-C [Primary Care Provider] - 11/26/20 11:00 am DONIS TANNER JR, DO [ACTIVE PROVISIONAL STAFF] - 11/27/20 8:30 am (Patient must be fever free 24 hours prior to appt. if fever developes please contact office to re schedule) Prescriptions: Oxycodone HCl [Oxy-Ir 5 mg Tablet] 5 mg PO Q4HP PRN #10 tablet PRN Reason: Pain Scale Of 4 Ceftriaxone Sodium [Ceftriaxone] 2 gm IV DAILY 41 Days vial.port Home Medications: Glipizide [Glipizide Xl] 10 mg PO DAILY 10/06/20 Lisinopril/Hydrochlorothiazide [Lisinopril-Hctz 20-12.5 mg Tab] 1 each PO DAILY 10/06/20 Metformin HCl 1,000 mg PO BID 10/06/20 [place]-3/Dha/Epa/Fish Oil [Fish Oil 1,000 mg Softgel] 3 each PO QAM 10/06/20 Naproxen [Naprosyn 250 mg Tablet] 250 mg PO BIDP PRN #60 tablet 10/09/20 Levothyroxine Sodium 125 mcg PO DAILY #30 tablet 10/13/20 Acetaminophen [Tylenol 325 mg Tablet] 975 mg PO Q6 tablet 11/19/20 Ascorbic Acid [Vitamin C 500 mg Tablet] 500 mg PO BID tablet 11/19/20 Aspirin [Aspirin 81 mg Chewable Tablet] 81 mg PO BID tab.chew 11/19/20 Ceftriaxone Sodium [Ceftriaxone] 2 gm IV DAILY 41 Days vial.port 11/19/20 Cholecalciferol (Vitamin D3) [Vitamin D3 1000 Unit Tablet] 1,000 unit PO DAILY tablet 11/19/20 Diphenhydramine HCl [Benadryl 25 mg Capsule] 25 mg PO Q6HP PRN capsule 11/19/20 Docusate Sodium [Colace 100 mg Capsule] 100 mg PO TIDP PRN capsule 11/19/20 Oxycodone HCl [Oxy-Ir 5 mg Tablet] 5 mg PO Q4HP PRN #10 tablet 11/19/20 History of Present Illiness History of Present Illness: BRIGETTE ZEPEDA is a 65 year old female she reports she has slept well over night. Reports some difficulty with changing her diaper with the wound vac in place. She reports her pain has been adequately controlled. She denies any SOB, chest pain or tachycardia. Physical Exam Vital Signs: Temp Pulse Resp BP Pulse Ox 98.2 F 120 H 17 119/68 91 L 11/20/20 07:35 11/20/20 07:35 11/20/20 07:35 11/20/20 07:35 11/20/20 07:35 Intake & Output 11/19/20 11/20/20 11/21/20 06:59 06:59 06:59 Intake Total 2110 1900 Output Total 1550 1550 Balance 560 350 Weight 107.2 kg 107.5 kg General appearance: PRESENT: no acute distress, cooperative, obese Head exam: PRESENT: normocephalic Eye exam: PRESENT: conjunctiva pink, EOMI, PERRLA. ABSENT: scleral icterus Respiratory exam: PRESENT: unlabored Additional comments: Lower Ext: Wound vac in place across right anterior hip incision. Sensation intact across lower extremities, Negative Angela sign. Results Laboratory Results: WBC 6.0 10^3/uL (4.0-10.5) 11/16/20 13:50 RBC 4.32 10^6/uL (3.72-5.28) 11/16/20 13:50 Hgb 12.5 g/dL (12.0-15.5) 11/16/20 13:50 Hct 36.7 % (36.0-47.0) 11/16/20 13:50 MCV 85 fl (80-97) 11/16/20 13:50 MCH 29.0 pg (27.0-33.4) 11/16/20 13:50 MCHC 34.1 g/dL (32.0-36.0) 11/16/20 13:50 RDW 14.7 % (11.5-14.0) H 11/16/20 13:50 Plt Count 255 10^3/uL (150-450) 11/16/20 13:50 Lymph % (Auto) 37.4 % (13-45) 11/16/20 13:50 [place] % (Auto) 6.8 % (3-13) 11/16/20 13:50 Eos % (Auto) 0.2 % (0-6) 11/16/20 13:50 Baso % (Auto) 0.6 % (0-2) 11/16/20 13:50 Absolute Neuts (auto) 3.3 10^3/uL (1.7-8.2) 11/16/20 13:50 Absolute Lymphs (auto) 2.2 10^3/uL (0.5-4.7) 11/16/20 13:50 Absolute Monos (auto) 0.4 10^3/uL (0.1-1.4) 11/16/20 13:50 Absolute Eos (auto) 0.0 10^3/uL (0.0-0.6) 11/16/20 13:50 Absolute Basos (auto) 0.0 10^3/uL (0.0-0.2) 11/16/20 13:50 Seg Neutrophils % 55.0 % (42-78) 11/16/20 13:50 ESR 22 mm/hr (0-30) 11/16/20 21:39 PT 13.1 SEC (11.4-15.4) 11/17/20 15:59 INR 0.97 11/17/20 15:59 Sodium 139.2 mmol/L (137-145) 11/16/20 13:50 Potassium 4.3 mmol/L (3.6-5.0) 11/16/20 13:50 Chloride 100 mmol/L (98-107) 11/16/20 13:50 Carbon Dioxide 33 mmol/L (22-30) H 11/16/20 13:50 Anion Gap 6 (5-19) 11/16/20 13:50 BUN 21 mg/dL (7-20) H 11/16/20 13:50 Creatinine 0.70 mg/dL (0.52-1.25) 11/16/20 13:50 Est GFR ( Amer) > 60 (>60) 11/16/20 13:50 Est GFR (MDRD) Non-Af > 60 (>60) 11/16/20 13:50 Glucose 206 mg/dL (75-110) H 11/16/20 13:50 POC Glucose 187 mg/dL (70-110) H 11/20/20 11:12 Hemoglobin A1c % 6.3 % (4.7-6.0) H 11/18/20 07:08 Calcium 9.0 mg/dL (8.4-10.2) 11/16/20 13:50 Total Bilirubin 0.3 mg/dL (0.2-1.3) 11/16/20 13:50 Direct Bilirubin 0.3 mg/dL (0.0-0.4) 11/16/20 13:50 Neonat Total Bilirubin Not Reportable 11/16/20 13:50 Neonat Direct Bilirubin Not Reportable 11/16/20 13:50 Neonat Indirect Bili Not Reportable 11/16/20 13:50 AST 58 U/L (14-36) H 11/16/20 13:50 ALT 75 U/L (<35) H 11/16/20 13:50 Alkaline Phosphatase 102 U/L (38-126) 11/16/20 13:50 C-Reactive Protein 17.6 mg/L (<10.0) H 11/16/20 13:50 Total Protein 6.6 g/dL (6.3-8.2) 11/16/20 13:50 Albumin 3.9 g/dL (3.5-5.0) 11/16/20 13:50 Time Trough Drawn 1001 11/19/20 10:01 Vancomycin Trough 9.7 ug/mL (5.0-20.0) 11/19/20 10:01 Influenza A (RT-PCR) NEGATIVE (NEGATIVE) 11/16/20 16:30 Influenza B (RT-PCR) NEGATIVE (NEGATIVE) 11/16/20 16:30 RSV (RT-PCR) NEGATIVE (NEGATIVE) 11/16/20 16:30 SARS-CoV-2 Rap RNA(RT-PCR) POSITIVE (NEGATIVE) H 11/16/20 16:30 Impressions: Hip/Pelvis X-Ray 11/16/20 13:22 IMPRESSION: Intact right-sided KERWIN hardware. Chest X-Ray 11/17/20 00:00 IMPRESSION: NO ACUTE RADIOGRAPHIC FINDING IN THE CHEST. PICC Line Insertion 11/19/20 00:00 IMPRESSION: SUCCESSFUL PLACEMENT OF A 5 FR DUAL LUMEN 38 CM PICC IN THE LEFT BASILIC VEIN. Plan Plan of Treatment: Discharge Today. At home IV abx Continue Wound Vac F/U in office 7-10 days. Time Spent: Less than 30 Minutes Stroke Is this a Stroke Patient?: No Acute Heart Failure Is this a Heart Failure Patient?: No
== END 2020-11-20 15:59 | disposition home health service (06) | DRG 862 ==
LOC: ER 12:02 → EH 17:07 → 4S 19:20
PROVIDERS: ADMIT Orthopaedic Surgery; ATTEND Orthopaedic Surgery
PROC: 0HBHXZZ Excision of Right Upper Leg Skin, External Approach (ICD-10-PCS; principal; 2020-11-17 17:30)
PROC: 05HY33Z Insertion of Infusion Device into Upper Vein, Percutaneous Approach (ICD-10-PCS; 2020-11-19)
DX: T81.41XA Infection following a procedure, superficial incisional surgical site, initial encounter (principal); U07.1 COVID-19; A49.01 Methicillin susceptible Staphylococcus aureus infection, unspecified site; Y83.8 Other surgical procedures as the cause of abnormal reaction of the patient, or of later complication, without mention of misadventure at the time of the procedure; I10 Essential (primary) hypertension; E11.9 Type 2 diabetes mellitus without complications; E03.9 Hypothyroidism, unspecified; Z88.6 Allergy status to analgesic agent; Z79.84 Long term (current) use of oral hypoglycemic drugs; Z79.899 Other long term (current) drug therapy; Z79.02 Long term (current) use of antithrombotics/antiplatelets; Z87.891 Personal history of nicotine dependence; Z88.5 Allergy status to narcotic agent; Z86.718 Personal history of other venous thrombosis and embolism; E66.9 Obesity, unspecified; Z68.38 Body mass index [BMI] 38.0-38.9, adult; Z23 Encounter for immunization
CPT/HCPCS: 01250; 36415; 36573; 71045; 80053; 80202; 82962; 83036; 85025; 85610; 85652; 86140; 87040; 87070; 87075; 87077; 87186; 87205; 99140; 99285; 0241U; C9803; J0171; J0690; J0696; J1100; J1642; J1815; J1885; J2250; J2270; J2370; J2405; J2704; J3010; J3370; J3490; J7030; J7060; S0119